=== PATIENT | male | born 2000 | race Caucasian/White ===

== ENCOUNTER 2022-07-05 17:21 | Inpatient (IN) | payer SELFPAY ==
--- NOTE | 2022-07-05 17:23 | W.ED.PSYCHS ---
HPI - Psych General: Chief Complaint: Psychiatric Symptoms Stated Complaint: psychiatric symptoms Time Seen by Provider: 07/05/22 17:23 History of Present Illness: Mr. Aparicio is a 21-year-old male with apparent psychiatric history who presents to the emergency department due to psychiatric evaluation. The patient presents with a number of medications which apparently he took himself off of approximately 1 week ago. He has had hallucinations, suicidal ideation, and tangential thoughts including difficulty sleeping for a number of days. He presents with [facility] department with 96-hour hold paperwork. Patient history is mildly limited by psychiatric symptoms. Onset (ago): day(s) Duration: getting worse History of same: Yes Context: recent alcohol abuse and not taking psychiatric medications Associated psychiatric symptoms: depression, suicidal ideation, auditory hallucinations and delusions Treatments prior to arrival: placed on mental health hold Review of Systems General: Reports: 10 or more systems reviewed and unremarkable except in HPI and below PFSH ED PFSH: Medical History (Updated 07/13/22 @ 20:34 by Joselo Coughlin MD) Alcohol use Bipolar 1 disorder Borderline intellectual functioning Cannabis use disorder Intermittent explosive disorder in adult Social History (Updated 07/13/22 @ 20:35 by Joselo Coughlin MD) Alcohol intake: current Physical Exam Const: COMMON NORMALS: alert GENERAL APPEARANCE: well developed HENMT: COMMON NORMALS: normocephalic and atraumatic HEAD & SCALP: normocephalic and atraumatic Eye: COMMON NORMALS: conjunctivae normal CONJUNCTIVA: Yes conjunctivae normal SCLERA: sclerae normal Neck/C-Spine: COMMON NORMALS: supple GENERAL: Yes trachea midline Resp: COMMON NORMALS: clear to auscultation bilaterally EFFORT & INSPECTION: Yes able to speak in complete sentences AUSCULTATION: clear to auscultation bilaterally Cardio: COMMON NORMALS: regular rate and regular rhythm RATE: regular rate RHYTHM: regular rhythm GI: COMMON NORMALS: Soft to palpation PALPATION: Yes Soft to palpation and No Tenderness to palpation present (GI) Extremity: GENERAL: Yes normal exam except as noted and No edema Neuro: COMMON NORMALS: moves all extremities SENSORIUM/ORIENTATION: Yes alert and No Orientation impaired Psych: ATTITUDE: Yes paranoid and Yes agitated MOOD & AFFECT: Yes anxious THOUGHT PROCESS: disorganized and Tangential thought process present INSIGHT: Poor insight present (Psych) JUDGEMENT: Poor judgement present (Psych) Course Vital Signs: Vital signs: Vital Signs Temperature 97.6 F 07/11/22 08:42 Pulse Rate 98 07/11/22 08:42 Respiratory Rate 16 07/11/22 08:42 Blood Pressure 137/71 07/11/22 08:42 Pulse Oximetry 96 07/11/22 08:42 Oxygen Delivery Me thod 07/11/22 06:37 MDM - Psych Medical Decision Making 21-year-old male presenting with psychiatric symptoms in the context of not taking psychiatric medications. Brought in by law enforcement. Given degree of agitation for anxiolysis with desired therapeutic effect. Laboratory studies obtained and reviewed without significant hematologic or metabolic abnormality. Toxic ingestions only minimally positive for ethyl alcohol at 12 mg/dL, UDS positive for THC. Given severity of patient's psychiatric symptoms he requires inpatient management. Based on ED evaluation at this point there is no obvious condition that would preclude inpatient management of psychiatric condition. Discussed case with psychiatry service and patient to be admitted to neuropsych unit. Medical Records I reviewed the patient's medical records. Lab Data I reviewed the patient's lab results. : 07/05/22 17:44 07/05/22 17:44 Laboratory Results WBC 8.6 10^3/uL (4.0-10.0) 07/05/22 17:44 RBC 5.45 10^6/uL (4.1-5.3) H 07/05/22 17:44 Hgb 15.0 g/dL (11.7-16.6) 07/05/22 17:44 Hct 45.3 % (42.0-52.0) 07/05/22 17:44 MCV 83.1 fl (80-94) 07/05/22 17:44 MCH 27.5 pg (28.0-34.0) L 07/05/22 17:44 MCHC 33.1 g/dL (30.0-36.0) 07/05/22 17:44 RDW 13.1 % (12.1-15.1) 07/05/22 17:44 Plt Count 271 10^3/cmm (130-400) 07/05/22 17:44 MPV 9.4 fL (7.4-10.4) 07/05/22 17:44 Neut % (Auto) 77.1 % 07/05/22 17:44 Lymph % (Auto) 17.0 % 07/05/22 17:44 [place] % (Auto) 5.2 % 07/05/22 17:44 Eos % (Auto) 0.1 % 07/05/22 17:44 Baso % (Auto) 0.3 % 07/05/22 17:44 Neut # (Auto) 6.61 10^3/uL (1.8-7.7) 07/05/22 17:44 Lymph # (Auto) 1.5 10^3/uL (0.8-4.8) 07/05/22 17:44 [place] # (Auto) 0.5 10^3/uL (0.2-0.9) 07/05/22 17:44 Eos # (Auto) 0.0 10^3/uL (0.0-0.8) 07/05/22 17:44 Baso # (Auto) 0.0 10^3/uL (0.0-0.1) 07/05/22 17:44 Nucleated RBC % (auto) 0 % 07/05/22 17:44 Nucleated RBCs # 0.0 /100WBC 07/05/22 17:44 Sodium 137 mmol/L (136-145) 07/05/22 17:44 Potassium 4.4 mmol/L (3.5-5.1) 07/05/22 17:44 Chloride 101 mmol/L (98-107) 07/05/22 17:44 Carbon Dioxide 24 mmol/L (22-29) 07/05/22 17:44 Anion Gap 16.4 (5-19) 07/05/22 17:44 BUN 8 mg/dL (6-20) 07/05/22 17:44 Creatinine 0.7 mg/dL (0.7-1.2) 07/05/22 17:44 GFR Calculation 141.0 mL/min (90-130) H 07/05/22 17:44 Glucose 115 mg/dL (65-115) 07/05/22 17:44 Calculated Osmolality 283 mOsm/kg (285-295) L 07/05/22 17:44 Calcium 9.5 mg/dL (8.5-10.5) 07/05/22 17:44 Total Bilirubin 0.3 mg/dL (0.15-1.2) 07/05/22 17:44 AST 23 U/L (0-40) 07/05/22 17:44 ALT 33 U/L (0-41) 07/05/22 17:44 Alkaline Phosphatase 101 U/L (40-130) 07/05/22 17:44 Total Protein 7.9 g/dL (6.6-8.7) 07/05/22 17:44 Albumin 5.0 g/dL (3.5-5.2) 07/05/22 17:44 Globulin 2.9 g/dL (1.3-4.6) 07/05/22 17:44 TSH 1.00 uIU/mL (0.27-4.20) 07/05/22 17:44 Salicylates 1.0 mg/dL (3-10) L 07/05/22 17:44 Acetaminophen < 5.0 ug/mL (10-30) L 07/05/22 17:44 Ethyl Alcohol 12 mg/dL (0-10) H 07/05/22 17:44 Discharge Plan Discharge Patient Disposition: Admitted As Inpatient Admit Provider: Jovanni Zarate Clinical Impression: Acute psychosis Condition: Stable Discharge Diet: Regular Discharge Activity: Resume usual activity Coding Level of Care Code ED Review Scheduling Coordinator for Lucía Almendarez
[2022-07-05 17:26] VITALS: BP 195/116; PULSE 87; RESP 18; TEMP 37.3; O2SAT 97; BMI 29.2
[2022-07-05] MEDS: LORazepam 2 mg Tablet PO (17:33)
[2022-07-05] MEDS: ziprasidone 20 mg/mL SDV IM (17:35)
--- NOTE | 2022-07-05 17:49 | PC.NURSE ---
pt sitting on side of bed, facing wall away from door. police officers and security in room. pt appears agitated and requires frequent attempts at verbal deescalation by law enforcement. unable to have conversation to ask further assessment questions due to frequency of requiring deescalation. pt speech clear, respirations even and unlabored, skin pink/warm/dry.
[2022-07-05 17:52] LABS: Basophils % 0.3 %; Eosinophils % 0.1 %; Hematocrit 45.3 % (42.0-52.0); Lymphocytes # 1.5 10^3/uL (0.8-4.8); Mean Corpuscular HGB Conc 33.1 g/dL (30.0-36.0); Mean Corpuscular Hemoglobin 27.5 pg (28.0-34.0); Mean Corpuscular Volume 83.1 fl (80-94); Mean Platelet Volume 9.4 fL (7.4-10.4); Monocytes # 0.5 10^3/uL (0.2-0.9); Monocytes % 5.2 %; Neutrophils # 6.61 10^3/uL (1.8-7.7); Neutrophils % 77.1 %; Nucleated Red Blood Cells % 0 %; Platelet Count 271 10^3/cmm (130-400); Red Blood Count 5.45 10^6/uL (4.1-5.3); Red Cell Distribution Width 13.1 % (12.1-15.1); White Blood Count 8.6 10^3/uL (4.0-10.0)
[2022-07-05 18:13] LABS: Alanine Aminotransferase 33 U/L (0-41); Alcohol Level 12 mg/dL (0-10); Alkaline Phosphatase 101 U/L (40-130); Anion Gap 16.4 (5-19); Aspartate Amino Transferase 23 U/L (0-40); Blood Urea Nitrogen 8 mg/dL (6-20); Calcium 9.5 mg/dL (8.5-10.5); Carbon Dioxide 24 mmol/L (22-29); Chloride 101 mmol/L (98-107); Globulin 2.9 g/dL (1.3-4.6); Glucose 115 mg/dL (65-115); Osmolality Calculated 283 mOsm/kg (285-295); Potassium 4.4 mmol/L (3.5-5.1); Sodium 137 mmol/L (136-145); Total Bilirubin 0.3 mg/dL (0.15-1.2); Total Protein 7.9 g/dL (6.6-8.7)
[2022-07-05 18:14] LABS: Acetaminophen < 5.0 ug/mL (10-30)
--- NOTE | 2022-07-05 18:56 | PC.NURSE ---
report given to ANA Petty to assume care
--- NOTE | 2022-07-05 20:19 | PC.NURSE ---
Report given to ANA Weiner in NPU.
[2022-07-05 20:20] VITALS: BP 114/59; PULSE 79; RESP 15; O2SAT 97
[2022-07-05 20:44] LABS: Amphetamines Screen Urine Negative (Negative); Barbiturates Screen Urine Negative (Negative); Benzodiazepines Screen Urine Negative (Negative); Cocaine Screen Urine Negative (Negative); Opiate Screen Urine Negative (Negative); PCP Screen Urine Negative (Negative); THC Screen Urine Positive (Negative)
[2022-07-05] MEDS: trazodone 50 mg Tablet PO (21:27)
[2022-07-05 22:00] VITALS: BP 142/86; PULSE 77; RESP 18; TEMP 36.6; O2SAT 96
[2022-07-06 06:00] VITALS: BP 145/81; PULSE 79; RESP 16; TEMP 36.6; O2SAT 97
[2022-07-06] MEDS: nicotine 2 mg Gum BUCCAL ×2 (07:42→14:18)
[2022-07-06] MEDS: OLANZapine 5 mg ODT PO (08:05)
--- NOTE | 2022-07-06 08:05 | PC.NURSE ---
Patient Behavior Patient pacing the halls, pushing on the ceiling tiles, slamming the door, pushing on the acute door (trying to push it open). While he is doing these things, speech is rapid and patient jumps from one topic to the next. Stating things like he will punch someone in the jaw to get out of her, to walking to his home and camping in the funk. Patient very difficult to redirect. Patient threatening to throw a table through the window to escape this place. Security was called to help with patient. Patient agreed to take some medication; zyprexa 5 mg was given PO.
[2022-07-06] MEDS: haloperidol 5 mg Tablet PO ×2 (08:47→14:52)
--- NOTE | 2022-07-06 08:48 | PC.NURSE ---
PT WAS AGITATED, SLAMMING ON DOORS AND YELLING AT PEERS AND STAFF. HALDOL WAS GIVEN TO THE PT. PT BROKE TABLET IN HALF AND SWALLOWED ONLY HALF OF A TABLET. PROVIDER WAS CONTACTED. ELEN NASCIMENTO WAS ORDERED.
--- NOTE | 2022-07-06 09:11 | PC.OT ---
OT EVALUATION ORDERS RECEIVED. NURSING REQUESTS HOLD AT THIS TIME DUE TO PATIENT AGITATION
[2022-07-06] MEDS: ziprasidone hcl 40 mg Capsule PO (09:19)
--- NOTE | 2022-07-06 09:21 | PC.NURSE ---
AFTER TALKING WITH SECURITY PT AGREED TO TAKE GEODON IM, ONCE MEDICATION WAS DRAWN UP PT THEN REFUSED IM INJECTION BUT WOULD TAKE ORAL GEODON. PT WAS GIVEN GEODON 40MG CAPSULE BUT TOOK THE CAPSULE APART AND DUMPED PART OF THE MEDICATION OUT. PT THEN PUT THE CAPSULE BACK TOGETHER AND TOOK THE MEDICATION.
--- NOTE | 2022-07-06 09:27 | P.NPUHP_ITS ---
Providers/Chief Complaint Admitting Physician: Jovanni Zarate MD Chief Complaint: psychiatric symptoms HPI NPU History of Present Illness Indra Aparicio is a 21 year old male who presented to the emergency department with the following report: Chief Complaint: Psychiatric Symptoms Stated Complaint: psychiatric symptoms Time Seen by Provider: 07/05/22 17:23 History of Present Illness: Mr. Aparicio is a 21-year-old male with apparent psychiatric history who presents to the emergency department due to psychiatric evaluation. The patient presents with a number of medications which apparently he took himself off of approximately 1 week ago. He has had hallucinations, suicidal ideation, and tangential thoughts including difficulty sleeping for a number of days. He presents with [facility] department with 96- hour hold paperwork. Patient history is mildly limited by psychiatric symptoms. He was admitted to the neuropsychiatric unit for definitive treatment of those issues. He presents today as a poor but improving historian who initially needed significant as needed medication to maintain on the unit of the last 24 hours. He was initially threatening to punch and harm staff members and demanding to leave. He presents today reporting that he is going to be agreeable and we discussed his discharge being in contingent upon him being able to show himself to be safe. He reports that he has been hospitalized before in [place] at [facility] and they put him on 5 pills he reports and he reports that that made him psychotic. His plans were to not take those medications he reports and that he should just smoke marijuana. We discussed the risks, benefits and alternatives of possibly taking 1 medication and that that should assist any psychosis and he understood and said that he would consider a medication once we reviewed it. He also reported but not be a problem moving forward. 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 But he had no explanation for the psychotic behavior described by his 96-hour hold affidavits. He endorsed cigarette smoking and marijuana use which was confirmed by his UDS and reported limited alcohol use also confirmed but denied other drug use. We reviewed the remainder of the psychosocial history as he was not a enthusiastic historian and there were no contributing pieces of information that he shared. Meds NPU Home Medications Medication Instructions Recorded Confirmed Last Taken Type fluoxetine 20 mg capsule (Prozac) 20 mg PO DAILY 07/05/22 07/05/22 Unknown History hydroxyzine pamoate 50 mg capsule 50 mg PO TID PRN Anxiety 07/05/22 07/05/22 Unknown History (Vistaril) oxcarbazepine 300 mg tablet 300 mg PO BID 07/05/22 07/06/22 Unknown History (Trileptal) risperidone 1 mg tablet (Risperdal) 1 mg PO BID 07/05/22 07/05/22 Unknown History trazodone 50 mg tablet 50 mg PO BEDTIME 07/05/22 07/05/22 Unknown History Allergies Allergy/AdvReac Type Severity Reaction Status Date / Time No Known Allergies Allergy Verified 07/05/22 17:31 Mental Status Exam MSE Comments: This is a tall well-nourished well-developed white male in hospital scrubs with limited grooming but adequate eye contact. Poor dentition. Mostly cooperative with exam in no acute distress. Speech was normal rate and volume. With significant accent Southern. Mood described as better than yesterday, affect congruent. Thought process more organized. Thought content: Patient denied suicidal or homicidal ideation, there were no delusions reported but some paranoia noted, he denied auditory or visual hallucinations. Attention and concentration were intact and memory was limited but none were formally tested. He was alert and oriented x3. Insight and judgment are impaired imp ulse control was impaired but appeared to be improving. Vitals/I&O/Wt Last Vital Signs Temp 97.9 F 07/06/22 06:00 Pulse 79 07/06/22 06:00 Resp 16 07/06/22 06:00 BP 145/81 07/06/22 06:00 Pulse Ox 97 07/06/22 06:00 O2 Del Method 07/06/22 06:00 Weight last 48 hrs Weight 117.934 kg Data NPU : 07/05/22 17:44 07/05/22 17:44 A&P Assessment and plan (1) Acute psychosis: (2) Cannabis use disorder: (3) Alcohol use: Plan This is a 21-year-old white male with history of inpatient hospitalization with reports of psychosis which are denied now but he endorses the medications that were given for psychosis because the psychosis with some active addiction concerns who presents after a fairly aggressive presentation to the unit reporting a willingness to be reasonable and maybe consider a medication. 1. Review current medication. We will consider whether one of the medications might be a reasonable foundation and discussed or offer an alternative medication. 2. Continue every 15 minute checks for safety. 3. Encourage individual, group and milieu therapies. 4. Encourage sober living treatment outside of the hospital at a high level of care to which he is willing to commit. 5. Obtain collateral information Involuntary Hold Information 96 Hour Hold: 96 Hour Involuntary Admission: Yes Attestations NPU Medical Necessity Statement*: Inpatient hospitalization is medically necessary and the clinically appropriate intervention at this time. We will monitor/start medications and make changes as indicated. He will be in the hospital over 2 midnights. Likely length of stay 4 to 6 days. Coding Level of Care Code Acute Director Smb Sales for Emilyg Fwd Diagnoses Acute psychosis F23 Cannabis use disorder F12.90 Alcohol use Z78.9
[2022-07-06 14:00] VITALS: BP 142/74; PULSE 78; RESP 16; TEMP 36.4; O2SAT 97
[2022-07-06] MEDS: diphenhydrAMINE 50 mg Capsule PO (14:52)
[2022-07-06] MEDS: LORazepam 2 mg Tablet PO (14:52)
--- NOTE | 2022-07-06 15:51 | PC.NURSE ---
Phone call with Sister Patient's sister called to check on patient. Let her know about behaviors this am, and that he is more calm and redirectable this afternoon. Patient's speech is not pressured and can carry on a conversation with staff. Sister states that the behavior this morning is not typical for her brother. States he is normally very helpful at his parent's place and can stay on track with conversations and is not hostile or destructive. States things changed when he got in trouble for poaching a deer. Patient went to long-term and then to [place] for mental health treatment. states they started him on several medications and he was not the same after taking these medications. after being discharged from [place] be began threatening to kill himself, speech was rapid, he had nightmares, reported vision problems; she also stated he went for 4-5 days without sleep. He was out of the hospital and long-term for a bit and then the sister took him back to [place] where he signed himself in voluntarily, busted up the unit there and signed himself out. States he was no better when he got home and that's when they filled out paperwork to have him admitted here. With his current behavior, sister is aftaid for both him and his parents wellbeing. Sister would like to be contacted and involved in discharge plans.
--- NOTE | 2022-07-06 16:15 | PC.NURSE ---
Patient Behavior Patient rested with eyes closed for several hours after receiving Geodon. After rest, patient is calmer, speech is not pressured or rapid. Patient can stay on topic for conversation. Patient does state he feels like he needs something to help keep him calm. Ativan, Haldol and Benadryl given at 1452. At the current time (1624), patient is calmly walking the cheek, talking with other patients and staff. Speech is calm. States he is feeling much better than he did this morning. States he doesn't want to feel that way again.
[2022-07-06 19:42] VITALS: RESP 18
[2022-07-07] MEDS: haloperidol 5 mg Tablet PO ×3 (02:24→17:56)
[2022-07-07] MEDS: LORazepam 2 mg Tablet PO ×3 (02:24→17:56)
[2022-07-07 02:41] VITALS: BP 141/77; PULSE 89; RESP 18; O2SAT 97
[2022-07-07] MEDS: ziprasidone hcl 20 mg Capsule PO (03:52)
--- NOTE | 2022-07-07 08:10 | W.PM.NPUPNS ---
Subjective NPU Subjective: Patient presents today reporting that he is angry being here, cursing, calling his sister cursing her out and slamming himself into the door trying to burst through it. Eventually after a significant conversation he was able to calm down and ultimately after discussion of the risks, benefits and alternatives he understood and agreed to proceed as is documented in his note with a trial of Abilify 10 mg p.o. every morning. Mental Status Exam MSE Comments: This is a tall well-nourished well-developed white male in hospital scrubs with limited grooming but adequate eye contact. Poor dentition. Mostly uncooperative with exam in moderate to severe distress. Speech was increased rate and volume. With significant accent Southern. Mood described as I am being discharged today, affect congruent. Thought process more organized. Thought content: Patient denied suicidal or homicidal ideation except at one point reporting he should just slit his wrists, there were no delusions reported but some paranoia noted, he denied auditory or visual hallucinations. Attention and concentration were intact and memory was limited but none were formally tested. He was alert and oriented x3. Insight and judgment are impaired impulse control was impaired. Intellectual ability limited versus impaired. Vitals/I&O/Wt Last Vital Signs Temp 97.6 F 07/06/22 14:00 Pulse 89 07/07/22 02:41 Resp 18 07/07/22 02:41 BP 141/77 07/07/22 02:41 Pulse Ox 97 07/07/22 02:41 O2 Del Method 07/06/22 06:00 Weight last 48 hrs Weight 117.934 kg Weight 117.934 kg Data NPU : 07/05/22 17:44 07/05/22 17:44 A&P Assessment and plan (1) Acute psychosis: (2) Cannabis use disorder: (3) Alcohol use: Plan This is a 21-year-old white male with history of inpatient hospitalization with reports of psychosis which are denied now but he endorses the medications that were given for psychosis because the psychosis with some active addiction concerns who presents after a fairly aggressive presentation to the unit reporting a willingness to be reasonable and maybe consider a medication. 1. Review current medication. Start abilify 10 mg po qam. 2. Continue every 15 minute checks for safety. 3. Encourage individual, group and milieu therapies. 4. Encourage sober living treatment outside of the hospital at a high level of care to which he is willing to commit. 5. Obtain collateral information Involuntary Hold Information 96 Hour Hold: 96 Hour Involuntary Admission: Yes Attestations NPU Medical Necessity Statement*: Inpatient hospitalization is medically necessary and the clinically appropriate intervention at this time. We will monitor/start medications and make changes as indicated. Likely length of stay 3-5 days. Coding Level of Care Code Acute Microeconomics Professor for [facility] Ashlyd Diagnoses Acute psychosis F23 Cannabis use disorder F12.90 Alcohol use Z78.9
[2022-07-07] MEDS: fluoxetine 20 mg Capsule PO (08:25)
[2022-07-07] MEDS: OXcarbazepine 300 mg Tablet PO (08:25)
[2022-07-07] MEDS: nicotine 2 mg Gum BUCCAL ×4 (08:26→17:00)
[2022-07-07] MEDS: OLANZapine 5 mg ODT PO ×2 (08:26→15:21)
[2022-07-07] MEDS: blistex lip oint 7 gm Tube 1 APPLIC TOPICAL (09:06)
[2022-07-07 14:00] VITALS: BP 157/78; PULSE 97; RESP 20; TEMP 36.5; O2SAT 95
[2022-07-07] MEDS: diphenhydrAMINE 50 mg Capsule PO (17:56)
[2022-07-07] MEDS: ARIPiprazole 10 mg Tablet PO (18:04)
[2022-07-07 20:30] VITALS: BP 115/62; PULSE 72; RESP 18; TEMP 36.7; O2SAT 96
[2022-07-07] MEDS: trazodone 50 mg Tablet PO ×2 (22:30)
[2022-07-08] MEDS: diphenhydrAMINE 50 mg Capsule PO (03:12)
[2022-07-08] MEDS: haloperidol 5 mg Tablet PO ×2 (03:12→20:06)
[2022-07-08] MEDS: nicotine 2 mg Gum BUCCAL ×3 (03:12→08:05)
[2022-07-08] MEDS: LORazepam 2 mg Tablet PO ×2 (03:12→20:06)
[2022-07-08 06:00] VITALS: RESP 18
[2022-07-08] MEDS: OLANZapine 5 mg ODT PO ×2 (09:13→20:06)
[2022-07-08] MEDS: nicotine 4 mg lozenge MUCOUS MEM ×4 (09:13→18:15)
[2022-07-08] MEDS: fluoxetine 20 mg Capsule PO (09:14)
[2022-07-08] MEDS: ARIPiprazole 10 mg Tablet PO (09:14)
--- NOTE | 2022-07-08 11:14 | P.NPUPN_ITS ---
Subjective NPU Subjective: Patient presents today reporting that he wants to go home. He has needed significant as needed medications to assist him maintaining his composure. He has started the Abilify and has not escalated to slamming into the doors but does have moments still of significant breakdowns impulse control with cursing, swearing and demanding to leave. Otherwise he denied any side effects to the Abilify and reports that he is eating fine and sleeping well with assistance. Mental Status Exam MSE Comments: This is a tall well-nourished well-developed white male in hospital scrubs with limited grooming but adequate eye contact. Poor dentition. Mostly uncooperative with exam in moderate to severe distress. Speech was more normal rate and volume. With speech difficulty with his Rs with significant ac cent Southern. Mood described as a little better today, affect congruent. Thought process more organized. Thought content: Patient denied suicidal or homicidal ideation except at one point reporting he should just slit his wrists, there were no delusions reported but some paranoia noted, he denied auditory or visual hallucinations. Attention and concentration were intact and memory was limited but none were formally tested. He was alert and oriented x3. Insight and judgment are impaired impulse control was impaired. Intellectual ability limited versus impaired. Vitals/I&O/Wt Last Vital Signs Temp 98.0 F 07/07/22 20:30 Pulse 72 07/07/22 20:30 Resp 18 07/08/22 06:00 BP 115/62 07/07/22 20:30 Pulse Ox 96 07/07/22 20:30 O2 Del Method 07/06/22 06:00 Weight last 48 hrs Weight 117.934 kg Data NPU : 07/05/22 17:44 07/05/22 17:44 A&P Assessment and plan (1) Acute psychosis: (2) Cannabis use disorder: (3) Alcohol use: Plan This is a 21-year-old white male with history of inpatient hospitalization with reports of psychosis which are denied now but he endorses the medications that were given for psychosis because the psychosis with some active addiction concerns who presents after a fairly aggressive presentation to the unit reporting a willingness to be reasonable and maybe consider a medication. 1. Review current medication. Started abilify 10 mg po qam. 2. Continue every 15 minute checks for safety. 3. Encourage individual, group and milieu therapies. 4. Encourage sober living treatment outside of the hospital at a high level of care to which he is willing to commit. Involuntary Hold Information 96 Hour Hold: 96 Hour Involuntary Admission: Yes Attestations NPU Medical Necessity Statement*: Inpatient hospitalization is medically necessary and the clinically appropriate intervention at this time. We will monitor/start medications and make changes as indicated. Likely length of stay 2-4 days. Coding Level of Care Code Acute Cellular Equipment Installer for Lucía Limond Diagnoses Acute psychosis F23 Cannabis use disorder F12.90 Alcohol use Z78.9
[2022-07-08 14:00] VITALS: BP 116/68; PULSE 75; RESP 18; TEMP 37; O2SAT 97
[2022-07-08] MEDS: lisinopril 10 mg Tablet PO (16:11)
[2022-07-08] MEDS: acetaminophen 325 mg Tablet 650 MG PO (18:36)
[2022-07-08] MEDS: trazodone 50 mg Tablet PO ×2 (19:23)
--- NOTE | 2022-07-08 20:05 | PC.NURSE ---
Patient came to nurse's station requesting something to help him sleep. PRN Trazodone was given but patient stated This isn't going to help me at all. Patient did not have a scrub top on and was asked to return to his room and put one on. Patient became agitated at this time and stated That's fucking stupid. I'm not going to be able to sleep and I'm going to cause problems. Noted to be in his room slamming things and crumpling paper talking to himself loudly. Attempted to redirect with no success. While pulling up PRN's other staff notified this board writer that patient had pulled down on fire alarm. Other staff member had approached patient to see what was going on. Staff informed patient that he could not pull fire alarm. PRN zyprexa po, haldol po and Ativan po given after incident without difficulty.
[2022-07-08 20:56] VITALS: BP 159/92; PULSE 93; RESP 18; TEMP 36.5; O2SAT 96
--- NOTE | 2022-07-08 22:00 | PC.NURSE ---
Patient resting quietly with eyes closed in bed at this time. No further behavior after administration of PRN's earlier in shift.
[2022-07-09] MEDS: hyDROXYzine 25 mg Capsule 50 MG PO (00:31)
[2022-07-09] MEDS: ibuprofen 600 mg Tablet PO (05:05)
[2022-07-09] MEDS: nicotine 2 mg Gum BUCCAL ×3 (05:05→14:38)
[2022-07-09 05:56] VITALS: BP 148/91; PULSE 106; RESP 18; TEMP 36.3; O2SAT 97
[2022-07-09] MEDS: lisinopril 10 mg Tablet PO (06:58)
[2022-07-09] MEDS: fluoxetine 20 mg Capsule PO (06:58)
[2022-07-09] MEDS: ARIPiprazole 10 mg Tablet PO (06:58)
[2022-07-09] MEDS: diphenhydrAMINE 50 mg Capsule PO ×2 (06:59→20:11)
[2022-07-09] MEDS: haloperidol 5 mg Tablet PO ×2 (06:59→20:10)
[2022-07-09] MEDS: LORazepam 2 mg Tablet PO ×2 (06:59→20:10)
[2022-07-09] MEDS: ARIPiprazole 10 mg Tablet 5 MG PO (10:44)
[2022-07-09] MEDS: propranolol 20 mg Tablet PO (13:49)
[2022-07-09 14:00] VITALS: BP 144/82; PULSE 86; RESP 17; TEMP 36.5; O2SAT 96
[2022-07-09] MEDS: acetaminophen 325 mg Tablet 650 MG PO (16:05)
--- NOTE | 2022-07-09 17:04 | P.NPUPN_ITS ---
Subjective NPU Subjective: Patient presented today once again having some angry outbursts. Reports are that they have been less frequent since initiation of Abilify but have continued to be present though less. We discussed the risks, benefits and alternatives of increasing the Abilify to 50 mg p.o. daily and he understood and agreed to proceed as is documented in this note. He is hopeful that he will not have to stay past his 96-hour hold and date of 07/11/2022. Mental Status Exam MSE Comments: This is a tall well-nourished well-developed white male in hospital scrubs with limited grooming but adequate eye contact. Poor dentition. Mostly uncooperative with exam in moderate to severe distress. Speech was more normal rate and volume. With speech difficulty with his Rs with significant accent Southern. Mood described as a little better today, affect congruent. Thought process more organized. Thought content: Patient denied suicidal or homicidal ideation except at one point reporting he should just slit his wrists, there were no delusions reported but some paranoia noted, he denied auditory or visual hallucinations. Attention and concentration were intact and memory was limited but none were formally tested. He was alert and oriented x3. Insight and judgment are impaired impulse control was impaired. Intellectual ability limited versus impaired. Vitals/I&O/Wt Last Vital Signs Temp 97.4 F L 07/09/22 05:56 Pulse 106 H 07/09/22 05:56 Resp 18 07/09/22 05:56 BP 148/91 07/09/22 05:56 Pulse Ox 97 07/09/22 05:56 O2 Del Method 07/08/22 14:00 Data NPU : 07/05/22 17:44 07/05/22 17:44 A&P Assessment and plan (1) Acute psychosis: (2) Cannabis use disorder: (3) Alcohol use: Plan This is a 21-year-old white male with history of inpatient hospitalization with reports of psychosis which are denied now but he endorses the medications that were given for psychosis because the psychosis with some active addiction concerns who presents after a fairly aggressive presentation to the unit reporting a willingness to be reasonable and maybe consider a medication. 1. Review current medication. Started abilify 10 mg po qam and increased to 15 mg p.o. daily. 2. Continue every 15 minute checks for safety. 3. Encourage individual, group and milieu therapies. 4. Encourage sober living treatment outside of the hospital at a high level of care to which he is willing to commit. Involuntary Hold Information 96 Hour Hold: 96 Hour Involuntary Admission: Yes Attestations NPU Medical Necessity Statement*: Inpatient hospitalization is medically necessary and the clinically appropriate intervention at this time. We will monitor/start medications and make changes as indicated. Likely length of stay 2-4 days. 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
[2022-07-09] MEDS: trazodone 50 mg Tablet PO (20:10)
[2022-07-09 22:00] VITALS: BP 142/82; PULSE 94; RESP 18; TEMP 36.6; O2SAT 97
[2022-07-10] MEDS: hyDROXYzine 25 mg Capsule 50 MG PO ×2 (02:23→20:01)
[2022-07-10 06:00] VITALS: BP 155/79; PULSE 113; RESP 16; TEMP 36.6; O2SAT 98
[2022-07-10] MEDS: lisinopril 10 mg Tablet PO (07:59)
[2022-07-10] MEDS: ARIPiprazole 10 mg Tablet 15 MG PO (07:59)
[2022-07-10] MEDS: fluoxetine 20 mg Capsule PO (07:59)
[2022-07-10] MEDS: OLANZapine 5 mg ODT PO (08:27)
[2022-07-10] MEDS: nicotine 2 mg Gum BUCCAL ×2 (08:29→12:49)
[2022-07-10] MEDS: nicotine 4 mg lozenge MUCOUS MEM ×3 (11:23→16:23)
[2022-07-10] MEDS: propranolol 20 mg Tablet PO (12:49)
[2022-07-10 14:00] VITALS: BP 140/79; PULSE 104; RESP 17; TEMP 36.6; O2SAT 97
--- NOTE | 2022-07-10 15:20 | W.PM.NPUPNS ---
Subjective NPU Subjective: Patient presented today reporting that he was optimistic that he could continue appropriate behavior so that we would consider discharge tomorrow when his 96-hour hold would . He reports feeling better on the current medication, and feeling calm and able to control some of his impulses. We had a lengthy discussion about him continuing the plan for follow-up at outpatient facilities once they are determined by the treatment team/social workers. He reports that he will be open to considering an injection later once he sees how the medication feels long-term. Mental Status Exam MSE Comments: This is a tall well-nourished well-developed white male in hospital scrubs with limited grooming but adequate eye contact. Poor dentition. Cooperative with exam in no acute distress. Speech was more normal rate and volume. With speech difficulty with his Rs with significant accent Southern. Mood described as pretty good, affect congruent. Thought process more organized. Thought content: Patient denied suicidal or homicidal ideation except at one point reporting he should just slit his wrists, there were no delusions reported or noted and he denied auditory or visual hallucinations. Attention and concentration were intact and memory was improving but none were formally tested. He was alert and oriented x3. Insight and judgment are limited but improving, impulse control was improving. Intellectual ability limited versus impaired. Vitals/I&O/Wt Last Vital Signs Temp 98 F 07/10/22 14:00 Pulse 104 H 07/10/22 14:00 Resp 17 07/10/22 14:00 BP 140/79 07/10/22 14:00 Pulse Ox 97 07/10/22 14:00 O2 Del Method 07/10/22 14:00 Data NPU : 07/05/22 17:44 07/05/22 17:44 A&P Assessment and plan (1) Acute psychosis: (2) Cannabis use disorder: (3) Alcohol use: Plan This is a 21-year-old white male with history of inpatient hospitalization with reports of psychosis which are denied now but he endorses the medications that were given for psychosis because the psychosis with some active addiction concerns who presents after a fairly aggressive presentation to the unit reporting a willingness to be reasonable and maybe consider a medication. 1. Review current medication. Started abilify 10 mg po qam and increased to 15 mg p.o. daily. 2. Continue every 15 minute checks for safety. 3. Encourage individual, group and milieu therapies. 4. Encourage sober living treatment outside of the hospital at a high level of care to which he is willing to commit. 5. Tentative plan for discharge in the morning. Involuntary Hold Information 96 Hour Hold: 96 Hour Involuntary Admission: Yes Attestations NPU Medical Necessity Statement*: Inpatient hospitalization is medically necessary and the clinically appropriate intervention at this time. We will monitor/start medications and make changes as indicated. Likely length of stay 1-2 days. Coding Level of Care Code Acute Building Supplies Salesperson Retail for [facility] Fwd Diagnoses Acute psychosis F23 Cannabis use disorder F12.90 Alcohol use Z78.9
[2022-07-10] MEDS: trazodone 50 mg Tablet PO ×2 (20:01→20:55)
[2022-07-10 22:00] VITALS: BP 142/79; PULSE 98; RESP 16; TEMP 36.7; O2SAT 96
[2022-07-10] MEDS: acetaminophen 325 mg Tablet 650 MG PO (23:58)
[2022-07-11] MEDS: calcium carbonate 500 mg Chew Tablet PO (00:59)
[2022-07-11] MEDS: OLANZapine 5 mg ODT PO (01:50)
[2022-07-11 06:00] VITALS: BP 142/79; PULSE 98; RESP 16; TEMP 36.7; O2SAT 96
[2022-07-11 06:37] VITALS: BP 137/71; PULSE 98; RESP 16; TEMP 36.4; O2SAT 96
[2022-07-11] MEDS: lisinopril 10 mg Tablet PO (08:27)
[2022-07-11] MEDS: fluoxetine 20 mg Capsule PO (08:27)
[2022-07-11] MEDS: ARIPiprazole 10 mg Tablet 15 MG PO (08:27)
--- NOTE | 2022-07-11 08:37 | P.NPUDS_ITS ---
Diagnoses at Discharge Discharge Diagnosis (1) Acute psychosis: Status: Acute (2) Cannabis use disorder: Status: Acute (3) Alcohol use: Status: Acute Reason for Visit Reason for Visit: psychiatric symptoms Brief History: History of Present Illness Indra Aparicio is a 21 year old male who presented to the emergency department with the following report: Chief Complaint: Psychiatric Symptoms Stated Complaint: psychiatric symptoms Time Seen by Provider: 07/05/22 17:23 History of Present Illness:?? Mr. Aparicio is a 21-year-old male with apparent psychiatric history who presents to the emergency department due to psychiatric evaluation.? The patient presents with a number of medications which apparently he took himself off of approximately 1 week ago.? He has had hallucinations, suicidal ideation, and tangential thoughts including difficulty sleeping for a number of days.? He presents with [facility]'s department with 96- hour hold paperwork.? Patient history is mildly limited by psychiatric symptoms. He was admitted to the neuropsychiatric unit for definitive treatment of those issues.? He presents today as a poor but improving historian who initially needed significant as needed medication to maintain on the unit of the last 24 hours.? He was initially threatening to punch and harm staff members and demanding to leave.? He presents today reporting that he is going to be agreeable and we discussed his discharge being in contingent upon him being able to show himself to be safe.? He reports that he has been hospitalized before in [place] [facility] [place] and they put him on 5 pills he reports and he reports that that made him psychotic. ? His plans were to not take those medications he reports and that he should just smoke marijuana.? We discussed the risks, benefits and alternatives of possibly taking 1 medication and that that should a ssist any psychosis and he understood and said that he would consider a medication once we reviewed it.? He also reported but not be a problem moving forward.? He reported that he generally does act out and work on his car/truck and is not a problem to anyone.? But he had no explanation for the psychotic behavior described by his 96-hour hold affidavits.? He endorsed cigarette smoking and marijuana use which was confirmed by his UDS and reported limited alcohol use also confirmed but denied other drug use.? We reviewed the remainder of the psychosocial history as he was not a enthusiastic historian and there were no contributing pieces of information that he shared. Hospital Course Hospital Course He slowly acclimated to the individual, group and milieu therapies.? He is clearly challenged by impulsivity and inability to control his thoughts and behaviors for many possible reasons. He presented on a 96-hour hold. He was initially needing as needed medications for his level of dysregulation. He was started on Abilify which was titrated to 15 mg daily and propranolol and lisinopril were also added. Trileptal and Risperdal were discontinued and Prozac was continued. He showed marked improvement and was able to contract for safety outside of the hospital, prior to discharge.? During the hospitalization, patient had routine laboratory studies which were within normal limits except for few outliers.? Additionally there was a general medical evaluation which was also within normal limits and revealed no new acute processes. Discharge Summary: At the time of discharge, he denied psychosis or lethality.? Mood and anxiety were well managed.? Patient endorsed a plan to avoid all drugs of abuse and follow-up with the aftercare recommendations of the treatment team.? Patient was evaluated and deemed to be absent credible lethality, and had achieved the maximum benefit from an inpatient hospitalization, so was discharged. Involuntary Hold Information 96 Hour Hold: 96 Hour Involuntary Admission: Yes Mental Status Exam MSE Comments: This is a tall well-nourished well-developed white male in hospital scrubs with limited grooming but adequate eye contact. Poor dentition. Cooperative with exam in no acute distress. Speech was more normal rate and volume. With speech difficulty with his Rs with significant accent Southern. Mood described as pretty good, affect congruent. Thought process more organized. Thought content: Patient denied suicidal or homicidal ideation except at one point reporting he should just slit his wrists, there were no delusions reported or noted and he denied auditory or visual hallucinations. Attention and concentration were intact and memory was improving but none were formally tested. He was alert and oriented x3. Insight and judgment are limited but improving, impulse control was improving. Intellectual ability limited versus impaired. Discharge Data Studies Completed and Pending: Laboratory Results WBC 8.6 10^3/uL (4.0- 10.0) 07/05/22 17:44 RBC 5.45 10^6/uL (4.1 -5.3) H 07/05/22 17:44 Hgb 15.0 g/dL (11.7-1 6.6) 07/05/22 17:44 Hct 45.3 % (42.0-52.0 ) 07/05/22 17:44 MCV 83.1 fl (80-94) 07/05/22 17:44 MCH 27.5 pg (28.0-34. 0) L 07/05/22 17:44 MCHC 33.1 g/dL (30.0-3 6.0) 07/05/22 17:44 RDW 13.1 % (12.1-15.1 ) 07/05/22 17:44 Plt Count 271 10^3/cmm (130 -400) 07/05/22 17:44 MPV 9.4 fL (7.4-10.4) 07/05/22 17:44 Neut % (Auto) 77.1 % 07/05/22 17:44 Lymph % (Auto) 17.0 % 07/05/22 17:44 [place] % (Auto) 5.2 % 07/05/22 17:44 Eos % (Auto) 0.1 % 07/05/22 17:44 Baso % (Auto) 0.3 % 07/05/22 17:44 Neut # (Auto) 6.61 10^3/uL (1.8 -7.7) 07/05/22 17:44 Lymph # (Auto) 1.5 10^3/uL (0.8- 4.8) 07/05/22 17:44 [place] # (Auto) 0.5 10^3/uL (0.2- 0.9) 07/05/22 17:44 Eos # (Auto) 0.0 10^3/uL (0.0- 0.8) 07/05/22 17:44 Baso # (Auto) 0.0 10^3/uL (0.0- 0.1) 07/05/22 17:44 Nucleated RBC % (a uto) 0 % 07/05/22 17:44 Nucleated RBCs # 0.0 /100WBC 07/05/22 17:44 Sodium 137 mmol/L (136-1 45) 07/05/22 17:44 Potassium 4.4 mmol/L (3.5-5 .1) 07/05/22 17:44 Chloride 101 mmol/L (98-10 7) 07/05/22 17:44 Carbon Dioxide 24 mmol/L (22-29) 07/05/22 17:44 Anion Gap 16.4 (5-19) 07/05/22 17:44 BUN 8 mg/dL (6-20) 07/05/22 17:44 Creatinine 0.7 mg/dL (0.7-1. 2) 07/05/22 17:44 GFR Calculation 141.0 mL/min (90- 130) H 07/05/22 17:44 Glucose 115 mg/dL (65-115 ) 07/05/22 17:44 Calculated Osmolal ity 283 mOsm/kg (285- 295) L 07/05/22 17:44 Calcium 9.5 mg/dL (8.5-10 .5) 07/05/22 17:44 Total Bilirubin 0.3 mg/dL (0.15-1 .2) 07/05/22 17:44 AST 23 U/L (0-40) 07/05/22 17:44 ALT 33 U/L (0-41) 07/05/22 17:44 Alkaline Phosphata se 101 U/L (40-130) 07/05/22 17:44 Total Protein 7.9 g/dL (6.6-8.7 ) 07/05/22 17:44 Albumin 5.0 g/dL (3.5-5.2 ) 07/05/22 17:44 Globulin 2.9 g/dL (1.3-4.6 ) 07/05/22 17:44 TSH 1.00 uIU/mL (0.27 -4.20) 07/05/22 17:44 Salicylates 1.0 mg/dL (3-10) L 07/05/22 17:44 Urine Opiates Scre en Negative ng/mL (N egative) 07/05/22 20:23 Acetaminophen < 5.0 ug/mL (10-3 0) L 07/05/22 17:44 Ur Barbiturates Sc reen Negative ng/mL (N egative) 07/05/22 20:23 Ur Phencyclidine S crn Negative ng/mL (N egative) 07/05/22 20:23 Ur Amphetamines Sc reen Negative ng/mL (N egative) 07/05/22 20:23 U Benzodiazepines Scrn Negative ng/mL (N egative) 07/05/22 20:23 Urine Cocaine Scre en Negative ng/mL (N egative) 07/05/22 20:23 U Marijuana (THC) Screen Positive ng/mL (N egative) H 07/05/22 20:23 Ethyl Alcohol 12 mg/dL (0-10) H 07/05/22 17:44 Vitals: Last Vital Signs Temp 97.6 F 07/11/22 06:37 Pulse 98 07/11/22 06:37 Resp 16 07/11/22 06:37 BP 137/71 07/11/22 06:37 Pulse Ox 96 07/11/22 06:37 O2 Del Method 07/11/22 06:37 Discharge Plan Discharge Patient Disposition: Home Condition: Stable Prescriptions: New aripiprazole 15 mg tablet 15 mg PO DAILY 30 Days Qty: 30 1RF lisinopril 10 mg Tablet 10 mg PO DAILY 30 Days Qty: 30 1RF propranolol 20 mg Tablet 20 mg PO TID PRN (Reason: Anxiety) 30 Days Qty: 90 1RF Continued trazodone 50 mg tablet 50 mg PO BEDTIME 30 Days Qty: 30 1RF Vistaril 50 mg capsule 50 mg PO TID PRN (Reason: Anxiety) 30 Days Qty: 30 1RF Prozac 20 mg capsule 20 mg PO DAILY 30 Days Qty: 30 1RF Discontinued oxcarbazepine [Trileptal] 300 mg tablet 300 mg PO BID risperidone [Risperdal] 1 mg tablet 1 mg PO BID Discharge Orders: Discharge Order (Routine); Ordered 07/11/22 Ordered By: Jovanni Zarate Referrals: [facility] [place] [Other] - 07/12/22 1:30 pm Discharge Diet: Regular Discharge Activity: Resume usual activity Patient Instructions: Propranolol (By mouth), Lisinopril (By mouth), Aripiprazole (By mouth), Bipolar Disorder (DC), Suicide Prevention (DC), Opioid Safety Discharge Attestations NPU Time Spent in Discharge Care*: less than 30 min Specific Discharge Activities: Specific discharge activities: educating patient, discussing with manager case management/social workers/dc planners, documenting/other paperwork and evaluating patient/reviewing data Coding Level of Care Code Acute Chg FW DC note Diagnoses Acute psychosis F23 Cannabis use disorder F12.90 Alcohol use Z78.9
[2022-07-11 08:42] VITALS: BP 137/71; PULSE 98; RESP 16; TEMP 36.4; O2SAT 96
[2022-07-11] MEDS: nicotine 2 mg Gum BUCCAL (09:21)
== END 2022-07-11 10:25 | disposition home or self-care (01) | DRG 885 ==
LOC: ER 18:13 → NP 19:45
PROVIDERS: Admitting Provider Psychiatry & Neurology Psychiatry; Emergency Provider Emergency Medicine; Visit Provider Psychiatry & Neurology Psychiatry
DX: F23 Brief psychotic disorder (principal); Z91.128 Patient's intentional underdosing of medication regimen for other reason; F12.90 Cannabis use, unspecified, uncomplicated; F10.90 Alcohol use, unspecified, uncomplicated; F17.210 Nicotine dependence, cigarettes, uncomplicated; Z79.891 Long term (current) use of opiate analgesic; R45.4 Irritability and anger
CPT/HCPCS: 36415; 80053; 80306; 80307; 84443; 85025; 96372; 97150; 97165; 99285; J3486; Q0163